=== PATIENT | male | born 1960 | race Caucasian/White ===

== ENCOUNTER 2020-03-28 08:16 | Outpatient (REF) | payer OTHER, SELFPAY ==
--- NOTE | 2020-03-28 08:27 | MR_ITS ---
EXAMINATION: MR SHOULDER WITHOUT CONTRAST, RIGHT CLINICAL INFORMATION: 60-year-old male with right shoulder pain. Evaluate for internal derangement. COMPARISON: Radiographs of shoulder from 02/22/2020. TECHNIQUE: MRI of the shoulder without contrast was performed on a high-field 1.5 Giovanna scanner. FINDINGS: ROTATOR CUFF: Mild thickening and mild signal heterogeneity of tendinosis involving the supraspinatus and infraspinatus. A small intrasubstance tear at the greater tuberosity insertion of the supraspinatus tendon approaches but does not overtly disrupt the bursal surface fibers. This tear measures 0.5 cm AP, 0.2 cm in length and affects approximately one-third of the tendon thickness. No full-thickness tears in the rotator cuff. The subscapularis and teres minor tendons are intact. Muscles of the rotator cuff are normal. BICEPS: The long head of the biceps tendon is normal. It is appropriately positioned within the intertubercular sulcus of the humerus. The intra-articular segment of the tendon, and biceps-labral junction, are intact. CORACOACROMIAL ARCH: At the moderately degenerated acromioclavicular joint, there is osseous hypertrophy, subarticular cystic change and subarticular marrow edema. The undersurface of the acromion is slightly curved, laterally, and without os acromiale or anterior acromial enthesophyte. No evidence of subacromial bursitis. LABRUM/CAPSULE: Intact. No evidence of labral tear or pathologic labral detachment. The glenohumeral ligament complex is unremarkable. No evidence of capsular thickening or pericapsular edema. The spinoglenoid notch is normal. GLENOHUMERAL JOINT/MARROW: The humeral head is well positioned over the intact glenoid. Articular cartilage of the glenohumeral joint is preserved. No glenohumeral joint effusion. No humeral bone bruise, fracture or avascular necrosis. IMPRESSION: * Moderate osteoarthritis of the acromioclavicular joint. * A small, partial-thickness tear of the insertion of the supraspinatus tendon approaches but does not overtly disrupt the bursal surface fibers. * There are no full-thickness tears in the rotator cuff.
== END 2020-03-28 08:17 | disposition home or self-care (01) ==
LOC: HO.MRI 08:16
PROVIDERS: Visit Provider Orthopaedic Surgery
DX: M24.811 Other specific joint derangements of right shoulder, not elsewhere classified (principal)
CPT/HCPCS: 73221

== ENCOUNTER 2020-04-02 08:21 | Outpatient (REF) | payer OTHER, SELFPAY | END 2020-04-02 08:22 | disposition home or self-care (01) | LOC: HO.LAB 08:21 | PROVIDERS: Visit Provider Internal Medicine | DX: Z20.828 Contact with and (suspected) exposure to other viral communicable diseases (principal) | CPT/HCPCS: 87635 ==

== ENCOUNTER → 2020-04-12 08:52 | Outpatient (BNVA) | payer OTHER, SELFPAY | PROVIDERS: Visit Provider Orthopaedic Surgery | DX: Z76.89 Persons encountering health services in other specified circumstances (principal) ==

== ENCOUNTER 2020-12-26 15:14 | Outpatient (REF) | payer OTHER, SELFPAY ==
--- NOTE | ~2020-12-26 | XR_ITS ---
EXAMINATION: XR KNEE, LEFT CLINICAL INFORMATION: Left knee pain. COMPARISON: Left knee radiograph dated 07/11/2015 TECHNIQUE: Four views of the left knee. FINDINGS: Bones and soft tissues are normal. No fracture or joint effusion. Alignment is anatomic. Joint spaces are well maintained. No abnormal soft tissue calcification. XR/XR knee LT 2V IMPRESSION: Unremarkable examination.
== END 2020-12-26 15:15 | disposition home or self-care (01) ==
LOC: HO.XRAY 15:14
PROVIDERS: PCP Internal Medicine; Visit Provider Internal Medicine
DX: M25.562 Pain in left knee (principal)
CPT/HCPCS: 73560

== ENCOUNTER 2020-12-28 09:05 | Outpatient (REF) | payer OTHER, SELFPAY ==
[2020-12-28 09:49] LABS: MANUAL DIFF FLAG NO
[2020-12-28 09:53] LABS: Basophils Percent Auto 0.5 % (0-2); Eosinophils Absolute Auto 0.3 X10*3/uL (0.0-0.4); Eosinophils Percent Auto 3.5 % (0-4); Hematocrit 48.1 % (42-52); Hemoglobin 16.1 g/dl (14.0-18.0); Imm Gran Abs Auto 0.05 X10*3/uL (0.00-0.03); Imm Gran Pct Auto 0.6 % (0.0-0.4); Lymphocytes Absolute Auto 3.2 X10*3/uL (1.2-4.9); Lymphocytes Percent Auto 36.3 % (20-40); Mean Corpuscular HGB Conc 33.5 g/dl (31.0-36.0); Mean Corpuscular Hemoglobin 30.4 pg (27.0-33.0); Mean Corpuscular Volume 90.8 fL (80-98); Monocytes Absolute Auto 1.1 X10*3/uL (0.1-1.2); Monocytes Percent Auto 12.9 % (2-11); Neutrophils Absolute Auto 4.1 X10*3/uL (2.0-8.3); Neutrophils Percent Auto 46.2 % (45-73); Platelet Count 248 X10*3/uL (160-400); Red Cell Distribution Width 12.9 % (11.0-16.0); White Blood Count 8.8 X10*3/uL (4.8-10.8)
[2020-12-28 10:40] LABS: Alanine Aminotransferase 85 U/L (0-40); Albumin Level 4.7 g/dL (3.5-5.0); Alkaline Phosphatase 67 U/L (39-117); Anion Gap 12 (12-20); Aspartate Amino Transferase 71 U/L (5-37); Bilirubin Total 1.1 mg/dL (0.0-1.0); Blood Urea Nitrogen 15 mg/dL (9-16); Calcium 10.2 mg/dL (8.4-10.2); Carbon Dioxide 29 mmol/L (22-29); Chloride 100 mmol/L (96-108); Cholesterol 279 mg/dL; Estimated Glomerular Filt Rate > 60; Glucose Random 104 mg/dL (60-115); HDL Cholesterol 132 mg/dL; LDL Cholesterol Calculated 137 mg/dl; Potassium 5.3 mmol/L (3.3-5.1); Sodium 136 mmol/L (135-145); Total Protein 7.4 g/dL (6.5-8.0); Triglycerides 53 mg/dL
[2020-12-28 10:52] LABS: Free T4 (Free Thyroxine) 0.79 ng/dL (0.71-1.85); Prostate Specific Antigen Scr 0.94 ng/mL (<0.05-4.0)
[2020-12-28 11:11] LABS: Folate 15.7 ng/mL (> or = 4.0); Vitamin B12 487 pg/mL (200-900)
== END 2020-12-28 09:06 | disposition home or self-care (01) ==
LOC: HO.LAB 09:05
PROVIDERS: PCP Internal Medicine; Visit Provider Internal Medicine
DX: Z12.5 Encounter for screening for malignant neoplasm of prostate (principal); E78.00 Pure hypercholesterolemia, unspecified; M25.562 Pain in left knee
CPT/HCPCS: 36415; 80053; 80061; 82607; 82746; 84153; 84439; 84443; 85025

== ENCOUNTER 2021-09-07 14:24 | Outpatient (REF) | payer OTHER, SELFPAY ==
[2021-09-07 14:38] LABS: Binax Internal Control QC Valid; Binax Now Covid-19 Ag Positive (Negative); Binax Performed by: HO.BONILM
== END 2021-09-07 14:25 | disposition home or self-care (01) ==
LOC: HO.HMGCLDS 14:24
PROVIDERS: PCP Internal Medicine; Visit Provider Physician Assistant Medical
DX: Z13.89 Encounter for screening for other disorder (principal)

== ENCOUNTER 2021-09-18 09:30 | Outpatient (REF) | payer OTHER, SELFPAY ==
--- NOTE | ~2021-09-18 | XR_ITS ---
EXAMINATION: XR CHEST CLINICAL INFORMATION: Covid 19 COMPARISON: None TECHNIQUE: 2 views of the chest were obtained. FINDINGS: No significant abnormality is noted involving the heart, lungs, mediastinum, bony thorax or soft tissues. XR/XR chest 2V IMPRESSION: Unremarkable chest exam.
== END 2021-09-18 09:31 | disposition home or self-care (01) ==
LOC: HO.XRAY 09:30
PROVIDERS: PCP Internal Medicine; Visit Provider Internal Medicine
DX: U07.1 COVID-19 (principal)
CPT/HCPCS: 71046

== ENCOUNTER → 2021-10-23 12:01 | Outpatient (RCR) | payer OTHER, SELFPAY ==
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
== END | disposition home or self-care (01) ==
LOC: HO.PTCHIC 03-29 09:49
PROVIDERS: PCP Internal Medicine; Visit Provider Internal Medicine
DX: M79.603 Pain in arm, unspecified (principal); M25.561 Pain in right knee; M79.604 Pain in right leg; M25.551 Pain in right hip; V89.2XXD Person injured in unspecified motor-vehicle accident, traffic, subsequent encounter
CPT/HCPCS: 97110; 97161; 97530

== ENCOUNTER 2022-03-15 08:32 | Emergency (ER) | payer OTHER, SELFPAY ==
[2022-03-15 08:45] VITALS: BP 148/93; PULSE 61; RESP 18; TEMP 36.9; O2SAT 100; BMI 30.9
--- NOTE | 2022-03-15 09:26 | ED_ITS ---
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 [employer] No numbness no weakness no tingling, he did not fall, he felt the pain immediately after lifting There is no changes to bowel or bladder no radiation of pain Related Data Previous Rx's Medication Instructions Recorded lisinopril 10 mg tablet 10 mg PO DAILY #90 caps 06/19/21 azithromycin 250 mg tablet See Rx Instructions PO .COMPLEX #6 09/18/21 (Zithromax) tabs fluticasone propionate 50 1 spray intranasal DAILY #16 grams 09/25/21 mcg/actuation nasal spray,suspension (Flonase Allergy Relief) acetaminophen 500 mg tablet 1,000 mg PO QID PRN pain #30 tabs 03/15/22 cyclobenzaprine 5 mg tablet 5 mg PO TID PRN muscle spasm #14 03/15/22 tabs ibuprofen 600 mg tablet 600 mg PO Q6H PRN pain #20 tabs 03/15/22 Allergies Allergy/AdvReac Type Severity Reaction Status Date / Time hair dye Allergy Intermediate facial Uncoded 09/18/21 08:40 swelling Review of Systems Review of Systems: Positive for low back pain Negatives are no fever no chills no dizziness or weakness no fainting no feeling faint no fall no headache no neck pain no chest pain no abdominal pain no radiation of the pain no numbness no weakness no tingling no changes to bowel or bladder no incontinence no dysuria no skin rash Yes all other systems are reviewed and are negative PMFSH Past Medical History Source: nursing notes reviewed Medical History Arthritis of right acromioclavicular joint Cholelithiasis Fatty liver Hypercholesterolemia Hypertension Internal derangement of right shoulder Obesity (BMI 30-39.9) Surgical History History of appendectomy History of arthroscopy of right knee History of excision of mass History of surgery Family History Family History Mother Asthma Chronic mental illness Alzheimers disease Father No problems noted. Sister Stomach cancer Social History Social History Housing: Apartment Patient Tobacco Use Status: Never used Tobacco e-Cigarette/Vaping Use: Never Used Second Hand Smoke Exposure: No Advance Directives: No Advance Directives Information Provided: No Current occupational status: employed Current occupation: [employer], right handed Cognitive needs: No Hearing needs: No Vision needs: Yes Physical Exam Vital Signs: Vital Signs: Last Vital Signs Temp 98.4 F 03/15/22 08:45 Pulse 61 03/15/22 08:45 Resp 18 03/15/22 08:45 BP 148/93 H 03/15/22 08:45 Pulse Ox 100 03/15/22 08:45 O2 Del Method 03/15/22 08:45 BMI result Body Mass Index 30.9 General appearance no acute distress Head is normocephalic atraumatic Neck is supple Chest wall nontender, respiratory no distress The abdomen is soft nontender The back had left side lower lumbar tenderness, no focal bony tenderness, skin was normal no CVA tenderness, pain easily reproduced with movement Extremities full range of motion x4 Skin no rash Neuro no focal motor sensory deficits, gait and balance are normal, motor is 5/5 x4 and sensation is intact and symmetrical Course Course Course Narrative: Patient with likely strained muscles in his back from lifting at work, no neur ologic deficit no radiation of pain is discharged to follow with work connection Discharge Plan Discharge Clinical Impression: Back strain Patient Disposition: Home, Self-Care Additional Instructions: Exam shows you likely strained muscles in her back, this usually gets better on its own but it is unclear when Follow with work connection next week for clearance to return to work Return to the ER any time any worse condition or any concerns Prescriptions: New acetaminophen 500 mg tablet 1,000 mg PO QID PRN (Reason: pain) Qty: 30 0RF cyclobenzaprine 5 mg tablet 5 mg PO TID PRN (Reason: muscle spasm) Qty: 14 0RF Rx Instructions: This medication may cause drowsiness so no driving for 6 hours after taking ibuprofen 600 mg tablet 600 mg PO Q6H PRN (Reason: pain) Qty: 20 0RF No Action lisinopril 10 mg tablet 10 mg PO DAILY Qty: 90 2RF fluticasone propionate [Flonase Allergy Relief] 50 mcg/actuation spray,suspension 1 spray intranasal DAILY Qty: 16 12RF Rx Instructions: administer into each nostril azithromycin [Zithromax] 250 mg tablet See Rx Instructions PO .COMPLEX Qty: 6 0RF Rx Instructions: For 250 mg dose pack: take 500 mg today (day 1), then 250 mg for 4 days (days 2-5) PO Referrals: [facility] [Provider Group] (Work-related back injury) Stand Alone Forms: Work/School Release
--- OUTSIDE RECORDS SUMMARY | 2022-03-15 09:31 | XMS_ITS | Continuity of Care Document ---
:1960 Author Organization [facility] Address [address] [place], [place] [id number]- Care Team Providers Name Role Phone Lawrence SMITH, Tyson Blanco Primary Care Physician [place] [facility] [place]/20 [place] [id number]- [facility] Discharge Disposition: A-D/C Home Attending Physician: Eduardo Bravo III, MD Admitting Physician: Eduardo Bravo III, MD Referring Physician: Eduardo Braov III, MD
--- OUTSIDE RECORDS SUMMARY | 2022-03-15 09:31 | XMS_ITS | Continuity of Care Document ---
:1960 Author Organization [facility] Address [address] [place] [address]- Care Team Providers Name Role Phone Lawrence Tyson SMITH Primary Care Physician [place] [facility] [place](s): 03/21/20 - 04/20/[address] [address] Attending Physician: Jose Horner Admitting Physician: Jose Horner Referring Physician: Jose Horner
--- OUTSIDE RECORDS SUMMARY | 2022-03-15 09:31 | XMS_ITS | Continuity of Care Document ---
:1960 Author Organization [facility] Address [address] [place] [address]- Care Team Providers Name Role Phone Tyson Bravo MD Primary Care Physician Encounter [facility] [place] Date(s): 01/31/20 - 05/21/[address] [id number]- Discharge Disposition: A-D/C Home Attending Physician: Tyson Bravo MD Admitting Physician: Tyson Bravo MD Referring Physician: Padmini Jimenez MD
== END 2022-03-15 09:48 | disposition home or self-care (01) ==
PROVIDERS: Emergency Provider Emergency Medicine; PCP Internal Medicine
DX: S39.012A Strain of muscle, fascia and tendon of lower back, initial encounter (principal); X50.0XXA Overexertion from strenuous movement or load, initial encounter; Y93.89 Activity, other specified; Y92.410 Unspecified street and highway as the place of occurrence of the external cause; Y99.0 Civilian activity done for income or pay
CPT/HCPCS: 99282; 99283

== ENCOUNTER → 2022-03-17 10:20 | Outpatient (BNVA) | payer OTHER, SELFPAY | PROVIDERS: PCP Internal Medicine; Visit Provider Internal Medicine | DX: S39.012A Strain of muscle, fascia and tendon of lower back, initial encounter (principal); X50.0XXA Overexertion from strenuous movement or load, initial encounter | CPT/HCPCS: 99202 ==

== ENCOUNTER → 2022-03-20 09:44 | Outpatient (BNVA) | payer OTHER, SELFPAY | PROVIDERS: PCP Internal Medicine; Visit Provider Internal Medicine | DX: S39.012A Strain of muscle, fascia and tendon of lower back, initial encounter (principal); X50.0XXA Overexertion from strenuous movement or load, initial encounter | CPT/HCPCS: 99213 ==

== ENCOUNTER 2022-03-27 09:19 | Outpatient (REF) | payer OTHER, SELFPAY ==
[2022-03-27 09:38] LABS: MANUAL DIFF FLAG NO
[2022-03-27 10:35] LABS: Basophils Absolute Auto 0.1 X10*3/uL (0.0-0.2); Basophils Percent Auto 0.6 % (0-2); Eosinophils Absolute Auto 0.3 X10*3/uL (0.0-0.4); Eosinophils Percent Auto 3.6 % (0-4); Hematocrit 48.7 % (42.0-52.0); Hemoglobin 16.3 g/dl (14.0-18.0); Imm Gran Abs Auto 0.06 X10*3/uL (0.00-0.03); Imm Gran Pct Auto 0.8 % (0.0-0.4); Lymphocytes Percent Auto 37.6 % (20-40); Mean Corpuscular HGB Conc 33.5 g/dl (31.0-36.0); Mean Corpuscular Hemoglobin 30.3 pg (27.0-33.0); Mean Corpuscular Volume 90.5 fL (80.0-98.0); Mean Platelet Volume 9.8 fL (9.4-12.4); Monocytes Absolute Auto 1.1 X10*3/uL (0.1-1.2); Monocytes Percent Auto 13.9 % (2-11); Neutrophils Absolute Auto 3.5 x10*3/uL (2.0-8.3); Neutrophils Percent Auto 43.5 % (45-73); Platelet Count 237 X10*3/uL (160-400); Red Blood Count 5.38 X10*6/uL (4.60-5.80); Red Cell Distribution Width 12.8 % (11.0-16.0)
[2022-03-27 11:25] LABS: Alanine Aminotransferase 70 U/L (0-40); Albumin Level 4.4 g/dL (3.5-5.0); Alkaline Phosphatase 86 U/L (39-117); Anion Gap 17 (12-20); Aspartate Amino Transferase 63 U/L (5-37); Bilirubin Total 0.2 mg/dL (0.0-1.0); Blood Urea Nitrogen 11 mg/dL (9-16); Calcium 9.2 mg/dL (8.4-10.2); Carbon Dioxide 25 mmol/L (22-29); Chloride 104 mmol/L (96-108); Cholesterol 277 mg/dL; Estimated Glomerular Filt Rate > 60; Glucose Random 106 mg/dL (60-115); HDL Cholesterol 128 mg/dL; LDL Cholesterol Calculated 135 mg/dl; Potassium 4.8 mmol/L (3.3-5.1); Sodium 141 mmol/L (135-145); Total Protein 7.1 g/dL (6.5-8.0); Triglycerides 74 mg/dL
[2022-03-27 11:50] LABS: Free T4 (Free Thyroxine) 0.81 ng/dL (0.71-1.85); Prostate Specific Antigen Scr 0.82 ng/mL (<0.05-4.0); Thyroid Stimulating Hormone 1.11 uIU/mL (0.32-4.0)
[2022-03-27 12:06] LABS: Folate 13.2 ng/mL (> or = 4.0); Vitamin B12 346 pg/mL (200-900)
== END 2022-03-27 09:20 | disposition home or self-care (01) ==
LOC: HO.LAB 09:19
PROVIDERS: PCP Internal Medicine; Visit Provider Internal Medicine
DX: E78.00 Pure hypercholesterolemia, unspecified (principal); Z12.5 Encounter for screening for malignant neoplasm of prostate
CPT/HCPCS: 36415; 80053; 80061; 82607; 82746; 84153; 84439; 84443; 85025

== ENCOUNTER → 2022-03-31 08:06 | Outpatient (BNVA) | payer OTHER, SELFPAY | PROVIDERS: PCP Internal Medicine; Visit Provider Internal Medicine | DX: S39.012D Strain of muscle, fascia and tendon of lower back, subsequent encounter (principal); X50.0XXD Overexertion from strenuous movement or load, subsequent encounter | CPT/HCPCS: 72100; 99214 ==

== ENCOUNTER → 2022-04-08 09:10 | Outpatient (BNVA) | payer OTHER, SELFPAY | PROVIDERS: PCP Internal Medicine; Visit Provider Internal Medicine | DX: S39.012A Strain of muscle, fascia and tendon of lower back, initial encounter (principal); X50.0XXA Overexertion from strenuous movement or load, initial encounter | CPT/HCPCS: 99213 ==

== ENCOUNTER → 2022-04-18 08:33 | Outpatient (BNVA) | payer OTHER, SELFPAY | PROVIDERS: PCP Internal Medicine; Visit Provider Internal Medicine | DX: S39.012D Strain of muscle, fascia and tendon of lower back, subsequent encounter (principal); X50.0XXD Overexertion from strenuous movement or load, subsequent encounter | CPT/HCPCS: 99213 ==

== ENCOUNTER 2022-05-23 11:00 | Outpatient (RCR) | payer OTHER, SELFPAY ==
--- NOTE | 2022-04-03 15:21 | MHC.PT.EP ---
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 MD sends him to PT with Dx of lumbar sprain/strain. PT Dx is consistent with this injury, does not present as disc involvement, only L sided lumbar sprain. He presents with decreased lumbar and hip AROM, weakness in hip and back musculature, antalgic gait/stiffness and difficulty with functional activities that are required for work tasks (climbing stairs, squatting and lifting, prolonged standing and walking.) He requires skilled PT to be able to return to PLOF activities and RTW. Frequency and Duration: The patient will be seen 3x/week for 4 weeks Short Term Goals: 2 weeks Patient demonstrates independence with HEP to self mange symptoms. Patient presents with increased lumbar side bending 20 degrees bilaterally to restore normalized gait pattern. 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 Patient presents with increased lumbar flexion AROM 90 degrees to bend without difficulty. Treatment Plan: Modalities to reduce pain, spasms and effusion. Manual therapy to restore motion and function. Therapeutic exercise to improve strength and flexibility. Neuromuscular re-education for posture and balance. Therapeutic activities to return to functional activities of daily living. Electronically signed by: Monica Garcia, PT, DPT Please sign and return to therapist. Thank you for your referral.
--- NOTE | 2022-05-02 15:04 | MHC.PT.EP ---
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 MD sends him to PT with Dx of lumbar sprain/strain. PT Dx is consistent with this injury, does not present as disc involvement, only L sided lumbar sprain. He presents with decreased lumbar and hip AROM, weakness in hip and back musculature, antalgic gait/stiffness and difficulty with functional activities that are required for work tasks (climbing stairs, squatting and lifting, prolonged standing and walking.) He requires skilled PT to be able to return to PLOF activities and RTW. Frequency and Duration: The patient will be seen 2x/week for 4 weeks Short Term Goals: 2 weeks Patient demonstrates independence with HEP to self mange symptoms. MET Patient presents with increased lumbar side bending 20 degrees bilaterally to restore normalized gait pattern. 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 MET objective portion. Patient presents with increased lumbar flexion AROM 90 degrees to bend without difficulty. NOT MET, painful Treatment Plan: Modalities to reduce pain, spasms and effusion. Manual therapy to restore motion and function. Therapeutic exercise to improve strength and flexibility. Neuromuscular re-education for posture and balance. Therapeutic activities to return to functional activities of daily living. Electronically signed by: Monica Garcia, PT, DPT Please sign and return to therapist. Thank you for your referral.
--- NOTE | 2022-06-02 14:27 | MHC.PT.DC ---
[facility] [place] Office [place] Office [place] Office [address] Kavon Ragland [address] [phone] F: [phone] F: [phone] F: [phone] F: [phone] Physical Therapy Discharge Report Diagnosis: Lumbar strain Date of Surgery: Date of Evaluation: 04/03/22 Date of Discharge: 06/02/22 Treatments to Date: 15 Cancellations to Date: 3 No Shows to Date: 2 Discharge Status: Improved Function Independent with HEP Visit Non-compliance Discharge Summary: Patient was treated in PT for 15 visits for worker's compensation for how LBP. He did not show at his last two scheduled PT appointments and is therefore discharged from PT at this time for non-compliance. Please see last re-evaluation performed on 05/02/22 for objective measurements taken. Electronically signed by: Monica Garcia, PT, DPT Please sign and return to therapist. Thank you for your referral.
== END 2022-06-02 14:27 | disposition home or self-care (01) ==
LOC: HO.PTCHIC 11:00
PROVIDERS: PCP Internal Medicine; Visit Provider Internal Medicine
DX: S39.012D Strain of muscle, fascia and tendon of lower back, subsequent encounter (principal)
CPT/HCPCS: 97012; 97014; 97110; 97112; 97140; 97161; 97530

== ENCOUNTER 2022-07-24 07:33 | Outpatient (REF) | payer OTHER, SELFPAY ==
[2022-07-25 07:32] LABS: HBc Num1 0.07 S/CO (0.00-0.79); Hepatitis A Antibody IgM 0.15 Index (0-0.79); Hepatitis B Core Antibody Nonreactive (Nonreactive); Hepatitis B Surface Antigen Negative (Negative); ~HepC Num1 0.11 S/CO (0.00-0.79); ~Hepatitis A Antibody IgM Nonreactive (Nonreactive); ~Hepatitis B Surface Antibody REACTIVE (Nonreactive); ~Hepatitis C Antibody Nonreactive (Nonreactive)
[2022-07-27 04:03] LABS: Alpha 1 Anti-trypsin 174 mg/dL (83-199); Ceruloplasmin 22 mg/dL (18-36)
[2022-07-29 07:44] LABS: Mitochondrial Antibodies NEGATIVE (NEGATIVE)
[2022-07-29 12:13] LABS: Anti Nuclear Antibody Screen NEGATIVE (NEGATIVE)
[2022-07-31 00:24] LABS: Smooth Muscle Antibody <20 U (<20)
== END 2022-07-24 07:34 | disposition home or self-care (01) ==
LOC: HO.LAB 07:33
PROVIDERS: PCP Internal Medicine; Referring Provider Internal Medicine; Visit Provider Physician Assistant
DX: Z01.818 Encounter for other preprocedural examination (principal); K76.0 Fatty (change of) liver, not elsewhere classified; R74.8 Abnormal levels of other serum enzymes; R79.89 Other specified abnormal findings of blood chemistry; R74.01 Elevation of levels of liver transaminase levels
CPT/HCPCS: 36415; 82103; 82390; 86015; 86038; 86039; 86255; 86256; 86704; 86706; 86709; 86803; 87340

== ENCOUNTER 2022-11-14 20:22 | Emergency (ER) | payer OTHER, SELFPAY ==
--- NOTE | ~2022-11-14 | XR_ITS ---
EXAMINATION: CHEST 2 VIEWS CLINICAL INFORMATION: fall rib pain. COMPARISON: . TECHNIQUE: PA and lateral views of the chest obtained. FINDINGS: The lungs are mildly hypoexpanded. No focal infiltrate, effusion, edema, or pneumothorax. Cardiac and mediastinal silhouettes are within normal limits for technique. No acute bony abnormality seen XR/XR chest 2V IMPRESSION: No evidence of acute disease
[2022-11-14 20:56] VITALS: BP 143/82; PULSE 79; RESP 16; TEMP 36.7; O2SAT 98; BMI 30.7
--- OUTSIDE RECORDS SUMMARY | 2022-11-15 00:16 | XMS_ITS | Continuity of Care Document ---
Author Name Unknown Organization [facility] Address [address] [place] [address]- Care Team Providers Care Room Attendant Name Role Phone Padmini Jimenez MD Primary Care Physician [phone] [facility] [place] Date(s): 07/17/22 - 08/16/22 [facility] [address] [place] [address]- Attending Physician: Jose Horner Admitting Physician: Jose Horner Referring Physician: Jose Horner Allergies, Adverse Reactions, Alerts No Known Allergies Medications aspirin 325 mg oral tablet 325 mg, 1, tablet, By Mouth, Daily, Refills 0, Maintenance, 02/19/21 13:11:00 EDT, Partial fill upon patient request if the prescription is for a schedule II opioid drug. Start Date: 02/19/21 Stop Date: 03/05/21 Status: Ordered lisinopril 10 mg oral tablet TAKE ONE TABLET BY MOUTH EVERY DAY Start Date: 04/24/22 Status: Ordered meloxicam 15 mg oral tablet 1 tablet = 15 mg, By Mouth, Daily, # 30 tablet, 0 Refills, Maintenance, 05/22/22 13:48:00 EST, Tablet, [facility], Partial fill upon patient request if the prescription is for a schedule II opioid drug., 180, cm, 05/22/22 13:32:00 EST, H... Start Date: 05/22/22 Status: Ordered Patient Care team information Care Team Personnel Name: Padmini Jimenez MD Position: Reference Physician Member Role: PCP Address: Address: [address] [place] [address]- Care Team Related Persons Name: SORAIDA CORNEJO Address: home [address] [place] [address]
--- OUTSIDE RECORDS SUMMARY | 2022-11-15 00:16 | XMS_ITS | Continuity of Care Document ---
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
[2022-11-15 00:18] VITALS: BP 139/87; PULSE 67; RESP 18; TEMP 36.4; O2SAT 96
--- NOTE | 2022-11-15 00:41 | ED.FALL ---
HPI - Fall General Chief Complaint: Fall Stated Complaint: fell 2 days ago, rib cage injury, sob Time Seen by Provider: 11/15/22 00:07 Source: patient Mode of arrival: ambulatory Limitations: no limitations History of Present Illness HPI Narrative: 62-year-old male presents with left-sided chest pain. Chest pain occurred after a fall in the bathtub. He did not hit his head or lose consciousness. Is a mechanical fall. Pain in his left chest is lateral nature. It is achy. Does not radiate. Pain is severe. 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 Prior treatment includes 1 cyclobenzaprine and topical heating medications. Related Data Previous Rx's Medication Instructions Recorded bisacodyl 5 mg tablet,delayed 10 mg PO ONCE colonoscopy prep 1 07/24/22 release (Dulcolax (bisacodyl)) day #2 tabs polyethylene glycol 3350 17 238 g PO ONCE 1 day #238 grams 07/24/22 gram/dose oral powder (Miralax) lisinopril 10 mg tablet 10 mg PO DAILY #90 caps 09/30/22 lidocaine 5 % topical patch 1 patch topical DAILY #30 ea 11/15/22 oxycodone 5 mg tablet 5 mg PO Q8H PRN pain #7 tabs 11/15/22 Allergies Allergy/AdvReac Type Severity Reaction Status Date / Time hair dye Allergy Intermediate facial Uncoded 03/31/22 10:08 swelling Review of Systems Review of Systems: CONSTITUTIONAL: Denies weight loss, fever and chills. HEENT: Denies changes in vision and hearing. RESPIRATORY: Denies SOB and cough. CV: Denies palpitations positive CP. GI: Denies abdominal pain, nausea, vomiting and diarrhea. : Denies dysuria and urinary frequency. MSK: Denies myalgia and joint pain. SKIN: Denies rash and pruritus. NEUROLOGICAL: Denies headache and syncope. PSYCHIATRIC: Denies recent changes in mood. Denies anxiety and depression. All other ROS are negative unless in HPI PMFSH Past Medical History Medical History Arthritis of right acromioclavicular joint Cholelithiasis Fatty liver Hypercholesterolemia Hypertension Internal derangement of right shoulder Obesity (BMI 30-39.9) Surgical History History of appendectomy History of arthroscopy of right knee History of excision of mass History of surgery Family History Family History Mother Asthma Chronic mental illness Alzheimers disease Father No problems noted. Sister Stomach cancer Other Mental health disorder Social History Social History Housing: Apartment Alcohol intake: current Alcohol intake frequency: 0-2 drinks per day Alcohol type: beer Patient Tobacco Use Status: Never used Tobacco e-Cigarette/Vaping Use: Never Used Second Hand Smoke Exposure: No Advance Directives: No Advance Directives Information Provided: Yes service: No Current occupational status: employed Current occupation: [employer], right handed Cognitive needs: No Hearing needs: No Vision needs: Yes (glasses) Physical Exam Vital Signs: Vital Signs: Last Vital Signs Temp 97.5 F 11/15/22 00:18 Pulse 67 11/15/22 00:18 Resp 18 11/15/22 00:18 BP 139/87 11/15/22 00:18 Pulse Ox 96 11/15/22 00:18 O2 Del Method Room Air 11/15/22 00:18 BMI result Body Mass Index 30.7 GEN: Well developed, no acute distress, alert, oriented HEENT: Normocephalic, atraumatic, normal external ears, nose appears normal, no oropharyngeal edema or exudates Eyes: Normal to appearance Neck: Supple, no lymphadenopathy Respiratory: Talks in complete sentences, no respiratory distress, clear to auscultation bilaterally Cardiovascular: Regular rate and rhythm, no murmurs rubs or gallops Abdomen: Soft, nontender, nondistended, no guarding, no rebound Back: No CVA tenderness Extremities: No clubbing cyanosis or edema Neurologic: No focal neurologic deficits, cranial nerves 2-12 intact, strength is 5/5 bilaterally Skin: No rash Chest: Reproducible tenderness left side of the chest wall to palpation. No ecchymoses Course Course Course Narrative: Patient presents with chest wall pain. X-ray reveals no acute cardiopulmonary disease and no definite rib fracture. Patient can take analgesic pain medications as needed. Can follow up with his primary care provider. Medical Decision Making Medical Decision Making MDM Narrative: Patient presents with 2-3 days of left-sided chest pain secondary to trauma. Examination is unremarkable with exception of reproducible tenderness. Will obtain an x-ray to rule out acute cardiopulmonary disease and possible rib fracture patient can take [id number] pain med remedies. We can also discuss prescription pain medications as well. Differential Diagnosis Differential Diagnoses: The differential diagnosis associated with the presentation includes (Contusion, fracture, sprain, strain, spasm) Independent Interpretation I performed an independent interpretation of an: Plain X-Ray (Chest: No acute cardiopulmonary disease no definitive rib fracture) Tests considered The following testing was considered but not selected: CT of the chest Prescription Management I considered prescription management with: Pain Medication Discharge Plan Discharge Clinical Impression: Chest wall contusion Patient Disposition: Home, Self-Care Instructions: Rib Contusion (ED) Prescriptions: New oxycodone 5 mg tablet 5 mg PO Q8H PRN (Reason: pain) Qty: 7 0RF Rx Instructions: Partial Fill upon patient request. lidocaine 5 % adhesive patch,medicated 1 patch topical DAILY Qty: 30 0RF Rx Instructions: leave on most painful area for up to 12 hrs No Action lisinopril 10 mg tablet 10 mg PO DAILY Qty: 90 0RF bisacodyl [Dulcolax (bisacodyl)] 5 mg tablet,delayed release (DR/EC) 10 mg PO ONCE 1 Days Qty: 2 0RF Rx Instructions: Take 2 tablets by mouth at 12:00pm the day before your procedure. polyethylene glycol 3350 [Miralax] 17 gram/dose powder 238 g PO ONCE 1 Days Qty: 238 0RF Rx Instructions: Take as directed by mouth the day before your procedure. Referrals: Po,Padmini Wesley MD [Primary Care Provider] - 1 week Stand Alone Forms: Work/School Release
== END 2022-11-15 00:48 | disposition home or self-care (01) ==
PROVIDERS: Emergency Provider Emergency Medicine; PCP Internal Medicine
DX: S20.213A Contusion of bilateral front wall of thorax, initial encounter (principal); W18.2XXA Fall in (into) shower or empty bathtub, initial encounter; Y93.9 Activity, unspecified; Y92.002 Bathroom of unspecified non-institutional (private) residence as the place of occurrence of the external cause; Y99.9 Unspecified external cause status; Z79.899 Other long term (current) drug therapy
CPT/HCPCS: 71046; 99283; 99284

== ENCOUNTER 2023-03-18 10:38 | Outpatient (AMB) | payer OTHER, SELFPAY ==
--- NOTE | 2023-03-18 10:36 | A.OFFPC_ITS ---
Vital Signs 03/18/23 10:39 Height 5 ft 11 in Weight 220 lb BMI 30.7 BP 120/70 Blood Pressure Location Lt brachial Position Sitting Pulse 80 Pulse Source Pulse Oximeter Pulse Oximetry (%) 98 Oxygen Delivery Method Room Air Intake Visit Reasons: annual physical Intake Note: Patient is here to follow up on HTN, Hypercholesterolemia. Svp Digital [employer] Required: No Maid Supervisor: Not Required per policy Accompanied by: Self / Same As Patient Allergies hair dye Allergy (Intermediate, Uncoded 03/18/23 10:38) facial swelling Medication List - Last Reconciled 03/18/23 by Padmini Jimenez MD bisacodyl (Dulcolax (bisacodyl)) 10 mg (2 x 5 mg) PO ONCE 1 day lidocaine 5% 1 patch topical DAILY lisinopril 10 mg PO DAILY polyethylene glycol 3350 (Miralax) 238 grams PO ONCE 1 day Tobacco use date assessed: 03/18/23 Dental Screening Dental Screen Date: 03/18/23 Did you have a dental visit in the last 12 months?: No Did you have a dental problem in the last 6 months where you did not have access to dental care?: No Was dental information given to patient?: Patient has dentist HPI annual physical HPI Details 62-year-old obese male with hypercholest erolemia fatty liver hypertension coming in for follow-up. Last seen in September 2021 having COVID-19 infection. Patient is here for physical exam colonoscopy is due. Review of the notes in November patient had a fall in the bathtub diagnosis chest wall contusion. Patient is scheduled to get colonoscopy in May. no PE as he is scheduled next week. patient also has rashes on face and wants referral to dermatology [facility] Medical History Arthritis of right acromioclavicular joint Cholelithiasis Fatty liver Hypercholesterolemia Hypertension Internal derangement of right shoulder Obesity (BMI 30-39.9) Surgical History History of surgery History of excision of mass History of arthroscopy of right knee History of appendectomy Family History Mother Asthma Chronic mental illness Alzheimers disease Father No problems noted. Sister Stomach cancer Other Mental health disorder Social History (Updated 03/18/23 @ 11:12 by Padmini Jimenez MD) Housing: Apartment Alcohol intake: current Alcohol intake frequency: a few times a week Alcohol type: beer Patient Tobacco Use Status: Never used Tobacco e-Cigarette/Vaping Use: Never Used Second Hand Smoke Exposure: No service: No Current occupational status: employed Current occupation: [employer], right handed Cognitive needs: No Hearing needs: No Vision needs: Yes (glasses) Questionnaire PHQ-9 Over the last 2 weeks, how often have you been bothered by any of the following problems? 1. Little interest or pleasure in doing things: not at all 2. Feeling down, depressed, or hopeless: not at all 3. Trouble falling or staying asleep, or sleeping too much: not at all 4. Feeling tired or having little energy: not at all 5. Poor appetite or overeating: not at all 6. Feeling bad about yourself - or that you are a failure or have let yourself or your family down: not at all 7. Trouble concentrating on things, such as reading the newspaper or watching television: not at all 8. Moving or speaking so slowly that other people could have noticed. Or the opposite - being so fidgety or restless that you have been moving around a lot more than usual: not at all 9. Thoughts that you would be better off or of hurting yourself in some way: not at all Total score: 0 Depression Screening Interpretation: Negative Depression Screening Done: Yes Source: Developed by Drs. Brando Lozoya, Maryjo Cabrera, Noble Powers and colleagues, with an educational maricruz from [employer]. Thrive Questionnaire Date Thrive assessed: 03/18/23 I am a: Patient What is your living situation today?: I have a steady place to live Within the past 12 months, did the food you bought not last and you didn't have the money to get more?: Never true Within the past 12 months, did you worry whether your food would run out before you got money to buy more?: Never true Do you have trouble paying for medicines?: No Do you have trouble getting transportation to medical appointments?: No Do you have trouble paying your heating and electricity bill?: No Do you have trouble taking care of your child, family member or friend?: No Do you have trouble with day-to-day activities such as bathing, preparing meals, shopping, managing finances, etc.?: No Are you currently unemployed and looking for a job?: No Are you interested in more education?: No Currently or been in a relationship where the following occur: no concerns reported AUDIT C Alcohol Use Questionnaire (AUDIT-C) 1. How often do you have a drink containing alcohol?: Monthly or less 2. How many drinks containing alcohol do you have on a typical day when you are drinking?: 1 or 2 Total Score: 1 GAURANG-7 AMB Questionnaire GAURANG-7 Date GAURANG - 7 assessed: 03/18/23 Feeling nervous, anxious, or on edge: 0 = Not at all Not being able to stop or control worryin = Not at all Worrying too much about different things: 0 = Not at all Trouble relaxin = Not at all Being so restless that it is hard to sit still: 0 = Not at all Becoming easily annoyed or irritable: 0 = Not at all Feeling afraid as if something awful might happen: 0 = Not at all Total GAURANG-7 score (0-4 normal; 5-9 mild; 10-14 moderate; 15-21 severe): 0 Source: Developed by Drs. Brando Lozoya, Maryjo Cabrera, Noble Powers and colleagues, with an educational maricruz from [employer]. Review of Systems Const Denies poor appetite and Denies weakness Eyes Denies no additional complaints ENT Reports Normal hearing present, Denies dizziness, Denies nasal congestion, Denies tinnitus and Denies sore throat Card Denies chest pain, Denies syncope, Denies rapid heart rate and Denies dyspnea Resp Denies cough and Denies dyspnea GI Denies change in stool character, Reports constipation, Denies diarrhea, Denies nausea and Denies vomiting Denies dysuria and Denies urinary frequency Neuro Reports Normal hearing present, Denies confusion, Denies dizziness, Denies syncope and Denies weakness Psych Denies confusion Physical exam (Primary Care) Vital Signs: Last Vital Signs Pulse 80 03/18/23 10:39 BP 120/70 03/18/23 10:39 Pulse Ox 98 03/18/23 10:39 Oxygen Delivery Method Room Air 03/18/23 10:39 BMI result Body Mass Index 30.7 Tobacco/Smoking Status: Tobacco use Status Tobacco use date assessed 03/18/23 03/18/23 10:38 Patient Tobacco Use Status Never used Tobacco 03/18/23 10:44 Tobacco use type 03/18/23 10:34 e-Cigarette/Vaping Use Never Used 03/18/23 10:44 PHQ-9: PHQ-9 Score PHQ-9: Total score 0 03/18/23 11:04 Depression Screening Interpretation: Negative Thrive Assessment: Date of Thrive Assessment Date Thrive assessed 03/18/23 03/18/23 10:38 Currently or been in a relationship where the following occur: no concerns reported Const General: alert and awake; No confusion Orientation/consciousness: No confusion HENMT Head: Yes normocephalic Ears: external ears normal and TM's normal bilaterally Face and sinus: Yes normal facial exam Mouth: moist mucous membranes Throat: Yes tonsils normal Eyes Conjunctivae: conjunctivae normal Pupils: Equal, round and reactive pupils present and Pupil accommodation reflex normal Direct Ophthalmoscopy: normal light reflex Neck Neck: No lymphadenopathy Thyroid: Thyroid normal Chest Chest palpation & inspection: normal inspection of the chest Resp Effort & Inspection: normal respiratory effort and no audible wheezes Auscultation: clear to auscultation bilaterally, no crackles, no wheezes and lung sounds not diminished Cardio Rate: regular rate Rhythm: regular rhythm Peripheral pulses: radial pulses present and dorsalis pedis present GI Palpation (GI): no masses Auscultation: normal bowel sounds and normoactive bowel sounds Rectal Exam - Male: Yes deferred Skin General skin exam: no rashes or lesions noted Rashes: no rashes Neuro General: deep tendon reflexes 2+ bilaterally and No confusion Cranial nerves: Yes Equal, round and reactive pupils present, Yes Midline tongue present, Yes Normal hearing present and Yes Ability to bilaterally elevate shoulders present Cognition (Neuro): normal cognition Gait exam (Neuro): Normal gait present Motor exam (neuro): 5/5 motor strength present throughout Deep tendon reflexes (DTR's): Right brachioradialis reflex intensity grade: 2+, Left brachioradialis reflex intensity grade: 2+, Right patellar reflex intensity grade: 2+ and Left patellar reflex intensity grade: 2+ Extrem General: No edema Office Procedures Flu Questionnaire Does the patient have a severe egg allergy?: No Does the patient have severe life threatening allergies?: No Does the patient have a fever or illness today?: No Has the patient ever had Guillain-Fulton Syndrome?: No Has the patient ever had any past reaction to a flu shot?: No Comment: afebrile. patient consented for flu shot today. Immunizations flu vacc [id number] 6mos up(PF) 60 mcg(15 mcgx4)/0.5 mL IM syringe Performing Provider: Padmini Jimenez MD [facility] Administered by: Ghassan Smith RN on 03/18/23 10:55 Dose Route Admin Location Dispensed Lot Number Expiration Date NDC Air Compressor Engineer 0.5 mL IM Right Deltoid 0.5 mL [id number] 12/13/23 52821-685-82 [id number] VIS Given Date VIS Provided VIS Publication Date 03/18/23 Single Vaccine 21 Eligibility Eligibility Date Funding Source Not VFC Eligible 03/18/23 Private Administration Comments: tolerated well Assessment and Plan Assessment & Plan (1) Fatty liver: Comment: Over chart review note elevated liver enzymes Will get abdominal ultrasound to assess for fatty liver Labs to rule out any underlying liver disease Code(s): K76.0 - Fatty (change of) liver, not elsewhere classified Plan: Low-fat diet and exercise (2) Obesity (BMI 30-39.9): Code(s): E66.9 - Obesity, unspecified Plan: Diet and exercise (3) Hypercholesterolemia: Code(s): E78.00 - Pure hypercholesterolemia, unspecified Plan: Avoid fried foods, chicken skin, eggs, butter margarine, pastries and meat. Be it pork or beef they have a lot of cholesterol LDL goal of less than 130 and triglyceride of less than 150 (4) Hypertension: Code(s): I10 - Essential (primary) hypertension Plan: Continue with blood pressure medication. Decrease salt intake and exercise continue with lisinopril 10 mg once a day (5) Frequency of micturition: Code(s): R35.0 - Frequency of micturition (6) Actinic keratosis: Code(s): L57.0 - Actinic keratosis Orders: Orders Influenza [id number] Immunization Today Z23 - Encounter for immunization Complete Blood Count Auto Diff Today E78.00 - Pure hypercholesterolemia, unspec ified Free T4 (Free Thyroxine) Today E78.00 - Pure hypercholesterolemia, unspecified Lipid Panel Today E78.00 - Pure hypercholesterolemia, unspecified Prostate Specific Antigen Scr Today E78.00 - Pure hypercholesterolemia, unspecified US bladder Today R35.0 - Frequency of micturition Comprehensive Met. Panel Today E78.00 - Pure hypercholesterolemia, unspecified Thyroid Stimulating Hormone Today E78.00 - Pure hypercholesterolemia, unsp ecified Vitamin B12 and Folate Today E78.00 - Pure hypercholesterolemia, unspecified Referrals Dermatology Referral L57.0 - Actinic keratosis Medications: New lisinopril 10 mg PO DAILY 90 tabs 1RF I10 - Essential (primary) hypertension Refilled lidocaine 5% leave on most painful area for up to 12 hrs 1 patch topical DAILY 30 ea 0RF E78.00 - Pure hypercholesterolemia, unspecified Coding Level of Care Code Est Pt Level 4 (40695) Est Pt Prev Care 40-64y(09071) Diagnoses Fatty liver K76.0 Obesity (BMI 30-39.9) E66.9 Hypercholesterolemia E78.00 Hypertension I10 Frequency of micturition R35.0 Actinic keratosis L57.0
[2023-03-18 10:39] VITALS: BP 120/70; PULSE 80; O2SAT 98; BMI 30.7
== END 2023-03-18 11:27 | disposition home or self-care (01) ==
PROVIDERS: PCP Internal Medicine; Visit Provider Internal Medicine
DX: Z00.00 Encounter for general adult medical examination without abnormal findings (principal); K76.0 Fatty (change of) liver, not elsewhere classified; Z68.30 Body mass index [BMI] 30.0-30.9, adult; E66.9 Obesity, unspecified; E78.00 Pure hypercholesterolemia, unspecified; Z23 Encounter for immunization; I10 Essential (primary) hypertension; R35.0 Frequency of micturition; L57.0 Actinic keratosis
CPT/HCPCS: 90471; 90686; 99396

== ENCOUNTER 2023-03-18 11:35 | Outpatient (REF) | payer OTHER, SELFPAY ==
[2023-03-18 11:49] LABS: MANUAL DIFF FLAG NO
[2023-03-18 12:58] LABS: Basophils Absolute Auto 0.1 X10*3/uL (0.0-0.2); Basophils Percent Auto 0.6 % (0-2); Eosinophils Absolute Auto 0.2 X10*3/uL (0.0-0.4); Eosinophils Percent Auto 2.5 % (0-4); Hematocrit 46.8 % (42.0-52.0); Hemoglobin 15.8 g/dl (14.0-18.0); Imm Gran Abs Auto 0.05 X10*3/uL (0.00-0.03); Imm Gran Pct Auto 0.6 % (0.0-0.4); Lymphocytes Absolute Auto 3.4 X10*3/uL (1.2-4.9); Mean Corpuscular HGB Conc 33.8 g/dl (31.0-36.0); Mean Corpuscular Hemoglobin 31.2 pg (27.0-33.0); Mean Corpuscular Volume 92.3 fL (80.0-98.0); Mean Platelet Volume 10.6 fL (9.4-12.4); Monocytes Percent Auto 11.7 % (2-11); Neutrophils Absolute Auto 3.8 x10*3/uL (2.0-8.3); Neutrophils Percent Auto 44.6 % (45-73); Platelet Count 213 X10*3/uL (160-400); Red Blood Count 5.07 X10*6/uL (4.60-5.80); Red Cell Distribution Width 12.6 % (11.0-16.0); White Blood Count 8.6 X10*3/uL (4.8-10.8)
[2023-03-18 14:00] LABS: Alanine Aminotransferase 57 U/L (0-40); Albumin Level 4.2 g/dL (3.5-5.0); Alkaline Phosphatase 63 U/L (39-117); Anion Gap 14 (12-20); Aspartate Amino Transferase 55 U/L (5-37); Bilirubin Total 0.9 mg/dL (0.0-1.0); Blood Urea Nitrogen 18 mg/dL (9-16); Calcium 9.4 mg/dL (8.4-10.2); Carbon Dioxide 26 mmol/L (22-29); Chloride 100 mmol/L (96-108); Cholesterol 273 mg/dL (<200); Estimated Glomerular Filt Rate > 60; Glucose Random 97 mg/dL (60-115); HDL Cholesterol 124 mg/dL (>40); LDL Cholesterol Calculated 140 mg/dL (<100); Potassium 4.3 mmol/L (3.3-5.1); Sodium 136 mmol/L (135-145); Total Protein 7.1 g/dL (6.5-8.0); Triglycerides 49 mg/dL (<150)
[2023-03-18 14:21] LABS: Thyroid Stimulating Hormone 1.64 uIU/mL (0.32-4.0)
[2023-03-18 14:31] LABS: Folate 13.6 ng/mL (> or = 4.0); Prostate Specific Antigen Scr 0.54 ng/mL (<0.05-4.0); Vitamin B12 459 pg/mL (200-900)
== END 2023-03-18 11:36 | disposition home or self-care (01) ==
LOC: HO.LAB 11:35
PROVIDERS: PCP Internal Medicine; Visit Provider Internal Medicine
DX: Z12.5 Encounter for screening for malignant neoplasm of prostate (principal); E78.00 Pure hypercholesterolemia, unspecified
CPT/HCPCS: 36415; 80053; 80061; 82607; 82746; 84153; 84439; 84443; 85025

== ENCOUNTER 2023-03-30 10:46 | Outpatient (REF) | payer OTHER, SELFPAY ==
--- NOTE | ~2023-03-30 | US_ITS ---
EXAMINATION: US PELVIS LIMITED (BLADDER) CLINICAL INFORMATION: Frequency of micturition. COMPARISON: Ultrasound retroperitoneal limited (renal only) 02/04/2018. TECHNIQUE: Real-time imaging of the bladder. FINDINGS: BLADDER: Well distended. Mild irregularity and trabeculations of the bladder wall. Bilateral ureteral jets are demonstrated. Prevoid bladder volume is 534 mL. Postvoid bladder volume is 103 mL. ADDITIONAL FINDINGS: Prostate volume 42 mL. US/US bladder IMPRESSION: Mild irregularity and trabeculations of the bladder wall. Postvoid bladder volume is 103 mL. Enlarged prostate.
== END 2023-03-30 10:47 | disposition home or self-care (01) ==
LOC: HO.HMGCX 10:46
PROVIDERS: PCP Internal Medicine; Visit Provider Internal Medicine
DX: R35.0 Frequency of micturition (principal)
CPT/HCPCS: 76857

== ENCOUNTER 2023-04-01 10:00 | Outpatient (AMB) | payer OTHER, SELFPAY ==
[2023-04-01 10:10] VITALS: BP 144/82; PULSE 68; O2SAT 97; BMI 31.0
--- NOTE | 2023-04-01 10:10 | A.OFFPC_ITS ---
Vital Signs 04/01/23 10:10 Height 5 ft 11 in Weight 222 lb 0.4 oz BMI 31.0 BP 144/82 H Blood Pressure Location Lt brachial Position Sitting Pulse 68 Pulse Source Pulse Oximeter Temp Source Skin Pulse Oximetry (%) 97 Oxygen Delivery Method Room Air Intake Visit Reasons: Annual Physical Allergies hair dye Allergy (Intermediate, Uncoded 04/01/23 10:16) facial swelling Medication List - Last Reconciled 04/01/23 by YADIRA Hdez amoxicillin 1,000 mg PO BID bisacodyl (Dulcolax (bisacodyl)) 10 mg (2 x 5 mg) PO ONCE 1 day lidocaine 5% 1 patch topical DAILY lisinopril 10 mg PO DAILY polyethylene glycol 3350 (Miralax) 238 grams PO ONCE 1 day Tobacco use date assessed: 04/01/23 Dental Screening Dental Screen Date: 04/01/23 Did you have a dental visit in the last 12 months?: Yes Did you have a dental problem in the last 6 months where you did not have access to dental care?: No Was dental information given to patient?: Patient has dentist HPI Annual Physical HPI Details Patient is a 63-year-old male who presents today for physical exam. Patient of Dr. Jimenez. Medical history significant for hypercholesterolemia, fatty liver, obesity, hypertension, frequency of micturition - patient reports that at night he has get up multiple times to urinate for the past some time now. He recently did have bladder ultrasound which showed mild irregularity and trabeculations of the bladder wall - patient declined referral to urology although interested in trying tamsulosin. Recent prostate blood work is normal. Patient has an upcoming colonoscopy 05/2023 with Marvin BURTON. He has an upcoming appointment for eye exam. Dental exam up-to-date. Patient denies shortness of breath or chest pain. Recent blood work results reviewed with the patient. 03/2023 US/US bladder IMPRESSION: Mild irregularity and trabeculations of the bladder wall. Postvoid bladder volume is 103 mL. Enlarged prostate. [facility] Medical History COVID-19 virus infection Obesity (BMI 30-39.9) Cholelithiasis Fatty liver Hypercholesterolemia Arthritis of right acromioclavicular joint Internal derangement of right shoulder Hypertension Surgical History History of surgery History of excision of mass History of arthroscopy of right knee History of appendectomy Family History Mother Asthma Chronic mental illness Alzheimers disease Father No problems noted. Sister Stomach cancer Other Mental health disorder Social History Housing: Apartment Alcohol intake: current Alcohol intake frequency: a few times a week Alcohol type: beer Patient Tobacco Use Status: Never used Tobacco e-Cigarette/Vaping Use: Never Used Second Hand Smoke Exposure: No service: No Current occupational status: employed Current occupation: [employer], right handed Cognitive needs: No Hearing needs: No Vision needs: Yes (glasses) Questionnaire PHQ-9 Over the last 2 weeks, how often have you been bothered by any of the following problems? 1. Little interest or pleasure in doing things: not at all 2. Feeling down, depressed, or hopeless: not at all 3. Trouble falling or staying asleep, or sleeping too much: not at all 4. Feeling tired or having little energy: not at all 5. Poor appetite or overeating: not at all 6. Feeling bad about yourself - or that you are a failure or have let yourself or your family down: not at all 7. Trouble concentrating on things, such as reading the newspaper or watching television: not at all 8. Moving or speaking so slowly that other people could have noticed. Or the opposite - being so fidgety or restless that you have been moving around a lot more than usual: not at all 9. Thoughts that you would be better off or of hurting yourself in some way: not at all Total score: 0 Depression Screening Interpretation: Negative Depression Screening Done: Yes 86759 - PHQ-9 Billing: Yes Source: Developed by Drs. Brando Lozoya, Maryjo Cabrera, Noble Powers and colleagues, with an educational maricruz from [employer]. Thrive Questionnaire Date Thrive assessed: 03/18/23 AUDIT C Alcohol Use Questionnaire (AUDIT-C) 1. How often do you have a drink containing alcohol?: Monthly or less 2. How many drinks containing alcohol do you have on a typical day when you are drinking?: 1 or 2 Total Score: 1 Score Reviewed/Action Taken: No GAURANG-7 AMB Questionnaire GAURANG-7 Date GAURANG - 7 assessed: 03/18/23 Source: Developed by Drs. Brando Lozoya, Maryjo Cabrera, Noble Powers and colleagues, with an educational maricruz from [employer]. Review of Systems Const Denies body aches, Denies chills, Denies fever(s) and Denies headache(s) Eyes Denies change in vision ENT Denies dizziness, Denies otalgia, Denies headache(s), Denies nasal discharge, Denies sinus pain and Denies sore throat Card Denies chest pain, Denies edema, Denies lightheadedness and Denies dyspnea Resp Denies cough, Denies dyspnea and Denies wheezing GI Denies abdominal pain, Denies constipation, Denies diarrhea, Denies nausea and Denies vomiting Denies dysuria and Reports urinary frequency Musc Denies myalgias Skin/Breast Denies rash Neuro Denies dizziness and Denies headache(s) Aller/Immun Denies wheezing Physical exam (Primary Care) Vital Signs: Last Vital Signs Pulse 68 04/01/23 10:10 BP 144/82 H 04/01/23 10:10 Pulse Ox 97 04/01/23 10:10 Oxygen Delivery Method Room Air 04/01/23 10:10 BMI result Body Mass Index 31.0 Tobacco/Smoking Status: Tobacco use Status Tobacco use date assessed 04/01/23 04/01/23 10:14 Patient Tobacco Use Status Never used Tobacco 04/01/23 10:14 Tobacco use type 03/18/23 10:34 e-Cigarette/Vaping Use Never Used 04/01/23 10:14 PHQ-9: PHQ-9 Score PHQ-9: Total score 0 04/01/23 10:19 Depression Screening Interpretation: Negative Thrive Assessment: Date of Thrive Assessment Date Thrive assessed 03/18/23 04/01/23 10:14 Const General: cooperative and no acute distress Orientation/consciousness: patient oriented x3 HENMT Head: Yes normocephalic and Yes atraumatic Ears: TM's normal bilaterally Face and sinus: Yes sinuses nontender Mouth: oropharynx normal and moist mucous membranes Throat: Yes posterior oropharynx normal Eyes General: appearance normal, both eyes and all related structures Pupils: Equal, round and reactive pupils present EOM: EOMs intact bilaterally Neck Neck: Yes normal visual inspection, Yes full ROM and Yes no lymphadenopathy Thyroid: Thyroid normal Resp Effort & Inspection: normal respiratory effort and able to speak in complete sentences Auscultation: clear to auscultation bilaterally, no crackles, no rales, no rhonchi and no wheezes Cardio Rate: regular rate Rhythm: regular rhythm Heart sounds: S1 normal heart sound present, S2 normal heart sound present and no murmurs GI Palpation (GI): Soft to palpation, not firm, nontender, no guarding, not rigid and no hepatosplenomegaly Auscultation: normal bowel sounds General: No CVA tenderness Back/Spine/Pelvis Back: No CVA tenderness Skin General skin exam: no rashes or lesions noted Neuro General: patient oriented x3 Cranial nerves: Yes Equal, round and reactive pupils present Gait exam (Neuro): Normal gait present Extrem General: Yes full ROM and No edema Assessment and Plan Assessment & Plan (1) Frequency of micturition: Code(s): R35.0 - Frequency of micturition Plan: Start tamsulosin 0.4 mg at bedtime - possible adverse reactions reviewed with the patient and when to notify provider Follow-up with PCP in 3 months (2) Annual physical exam: Code(s): Z00.00 - Encounter for general adult medical examination without abnormal findings Plan: Repeat in 1 year (3) Hypertension: Code(s): I10 - Essential (primary) hypertension Plan: Goal BP equal or less than 140/90 Continue lisinopril Low-sodium diet and weight loss (4) Obesity (BMI 30-39.9): Code(s): E66.9 - Obesity, unspecified Plan: Healthy food choices and exercise as tolerated (5) Fatty liver: Comment: Over chart review note elevated liver enzymes Will get abdominal ultrasound to assess for fatty liver Labs to rule out any underlying liver disease Code(s): K76.0 - Fatty (change of) liver, not elsewhere classified Plan: Low-cholesterol diet and weight loss (6) Hypercholesterolemia: Code(s): E78.00 - Pure hypercholesterolemia, unspecified Plan: Recent LDL 140 Reinforced low-cholesterol diet and weight loss Plan Follow-up with PCP in 3 months or sooner as needed Medications: New tamsulosin 0.4 mg PO BEDTIME 30 caps 2RF R35.0 - Frequency of micturition Coding Level of Care Code Est Pt Prev Care 40-64y(28815) Diagnoses Frequency of micturition R35.0 Annual physical exam Z00.00 Hypertension I10 Obesity (BMI 30-39.9) E66.9 Fatty liver K76.0 Hypercholesterolemia E78.00
== END 2023-04-01 11:33 | disposition home or self-care (01) ==
PROVIDERS: PCP Internal Medicine; Visit Provider Nurse Practitioner Family
DX: Z00.00 Encounter for general adult medical examination without abnormal findings (principal); R35.0 Frequency of micturition; Z68.31 Body mass index [BMI] 31.0-31.9, adult; E66.9 Obesity, unspecified; I10 Essential (primary) hypertension; K76.0 Fatty (change of) liver, not elsewhere classified; E78.00 Pure hypercholesterolemia, unspecified
CPT/HCPCS: 99396

== ENCOUNTER 2023-05-26 07:50 | Day surgery (SDC) | payer OTHER, SELFPAY ==
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
[2023-05-26 08:28] VITALS: BMI 31.7
[2023-05-26 08:33] VITALS: BP 137/82; PULSE 74; RESP 15; TEMP 36.6; O2SAT 97
--- NOTE | 2023-05-26 08:34 | P.HPSUR_ITS ---
Pre-Procedural Eval Section A Date of Service: 05/26/23 Section B Chief Complaint: Encounter for screening for malignant neoplasm of Relevant Family History (Specify if Yes): No Relevant Social History: None Present Medications: see Short Stay Collaborative assessment Medical History: Significant History (COVID-19 virus infection Obesity (BMI 30- 39.9) Cholelithiasis Fatty liver Hypercholesterolemia Arthritis of right acromioclavicular joint Internal derangement of right shoulder Hypertension) History of Previous Operations: Relevant previous surgery/procedure and date(s) (History of surgery History of excision of mass History of arthroscopy of right knee History of appendectomy) Allergies: Allergies Allergy/AdvReac Type Severity Reaction Status Date / Time hair dye Allergy Intermediate facial Uncoded 05/26/23 08:27 swelling Review of Systems Sugical H&P ROS: Negative: Constitution, Cardiovascular, Respiratory, Neurological, Psychiatric, Hem-Onc, Allergic/Immunologic, Gastrointestinal, Genitourinary, Musculoskeletal, Integumentary, Endocrine and Eyes/Ears/Nose/Throat Exam Surgical H&P Exam: Normal: HEENT, Normal: Heart, Normal: Lungs, Normal: Extremities, Normal: Abdomen, Normal: Skin and Normal: Neurological Plan Diagnosis/Plan: Unchanged I have reviewed the history and physical and performed a pertinent physical examination on my patient. No changes have occurred unless specified. Time Spent With Patient Time: Total time managing care of this patient today ____ minutes.
[2023-05-26] MEDS: Lactated Ringers 1,000 ML 100 ML IVCONT (08:49)
--- NOTE | 2023-05-26 09:49 | P.OP_ITS ---
Operative Note Operative Note Date of Service: 05/26/23 Narrative: Operative Information Procedure Description: Colonoscopy Indication: screening Anesthesia: MAC COLONOSCOPY Instrument: Olympus variable stiffness pediatric scope 190L Colonoscopy Monitoring: Vital signs and clinical assessment, continuous EKG monitoring, Pulse oximetry, Carbon Dioxide monitoring and blood pressure monitoring were done throughout the procedure. Colon withdrawal time was 17 minutes. Procedure: The patient was placed in the left lateral decubitis position and pre-procedure medications were administered. After a digital rectal examination of the ano-rectum, the video colonoscope was inserted into the rectum and advanced through the colon to the cecum/TI. The colonoscope was slowly withdrawn in a retrograde panoramic fashion and the colon mucosa was carefully examined including a retroflexed view of the rectum. Findings and interventions are described below. Procedure Difficulty: easy Findings: Terminal Ileum-normal Cecum:normal Ascending Colon: 4-6 mm sessile polyp removed with cold snare, mild melanosis coli Transverse Colon -normal Descending Colon:normal Sigmoid Colon: 5-7 mm sessile polyp removed with cold forceps, x 3 clips applied for hemostasis Rectum: Retroflexion with small internal hemorrhoids, grade I Anorectum - normal Colon preparation: Duncan Bowel Preparation Scale Right colon; 2 Transverse colon: 3 Left colon; 3 (0 = Unprepared colon segment with mucosa not seen due to solid stool that cannot be cleared. 1 = Portion of mucosa of the colon segment seen, but other areas of the colon segment not well seen due to staining, residual stool and/or opaque liquid. 2 = Minor amount of residual staining, small fragments of stool and/or opaque liquid, but mucosa of colon segment seen well. 3 = Entire mucosa of colon segment seen well with no residual staining, small fragments of stool or opaque liquid) Impression and Post Procedure Diagnosis: polyps internal hemorrhoids melanosis coli Plan: High fiber diet leaflet Avoid straining at stool, epsom salts and sitz bath, anusol supps or cream Repeat Colonoscopy in 5-7 years due to adenomatous appearing polyps or earlier if clinically indicated Above findings were reviewed with the patient and relevant handouts were provided if indicated.
[2023-05-26 09:54] VITALS: BP 125/76; PULSE 64; RESP 16; TEMP 36.5; O2SAT 97
[2023-05-26 10:09] VITALS: BP 134/86; PULSE 59; RESP 16; TEMP 36.7; O2SAT 97
[2023-05-26 10:23] VITALS: BP 128/87; PULSE 57; RESP 16; O2SAT 97
== END 2023-05-26 10:56 | disposition home or self-care (01) ==
PROVIDERS: PCP Internal Medicine; Visit Provider Internal Medicine Gastroenterology
PROC: 0DJD8ZZ Inspection of Lower Intestinal Tract, Via Natural or Artificial Opening Endoscopic (ICD-10-PCS; CPT 45378; principal; 2023-05-26 10:00)
DX: Z12.11 Encounter for screening for malignant neoplasm of colon (principal); D12.2 Benign neoplasm of ascending colon; D12.5 Benign neoplasm of sigmoid colon; K64.0 First degree hemorrhoids; K63.89 Other specified diseases of intestine; K76.0 Fatty (change of) liver, not elsewhere classified; R74.8 Abnormal levels of other serum enzymes; I10 Essential (primary) hypertension; E78.00 Pure hypercholesterolemia, unspecified; E66.9 Obesity, unspecified; Z68.30 Body mass index [BMI] 30.0-30.9, adult; Z79.899 Other long term (current) drug therapy
CPT/HCPCS: 45385; 45380; 88305; J2250; J2704

== ENCOUNTER → 2023-05-26 07:50 | Outpatient (BNV) | payer OTHER, SELFPAY | PROVIDERS: PCP Internal Medicine; Visit Provider Internal Medicine Gastroenterology | DX: Z12.11 Encounter for screening for malignant neoplasm of colon (principal); D12.2 Benign neoplasm of ascending colon; D12.5 Benign neoplasm of sigmoid colon; K64.0 First degree hemorrhoids | CPT/HCPCS: 45380; 45385 ==

== ENCOUNTER 2023-11-11 08:44 | Outpatient (REF) | payer OTHER, SELFPAY ==
[2023-11-11 09:08] LABS: MANUAL DIFF FLAG NO
[2023-11-11 09:42] LABS: Basophils Percent Auto 0.4 % (0-2); Eosinophils Absolute Auto 0.7 X10*3/uL (0.0-0.4); Hematocrit 47.9 % (42.0-52.0); Hemoglobin 16.2 g/dl (14.0-18.0); Imm Gran Abs Auto 0.13 X10*3/uL (0.00-0.03); Imm Gran Pct Auto 1.4 % (0.0-0.4); Lymphocytes Percent Auto 31.7 % (20-40); Mean Corpuscular HGB Conc 33.8 g/dl (31.0-36.0); Mean Corpuscular Hemoglobin 30.5 pg (27.0-33.0); Mean Corpuscular Volume 90.2 fL (80.0-98.0); Mean Platelet Volume 9.9 fL (9.4-12.4); Monocytes Absolute Auto 1.4 X10*3/uL (0.1-1.2); Monocytes Percent Auto 14.7 % (2-11); Neutrophils Absolute Auto 4.3 x10*3/uL (2.0-8.3); Neutrophils Percent Auto 44.8 % (45-73); Platelet Count 262 X10*3/uL (160-400); Red Blood Count 5.31 X10*6/uL (4.60-5.80); Red Cell Distribution Width 12.7 % (11.0-16.0); White Blood Count 9.5 X10*3/uL (4.8-10.8)
[2023-11-11 10:57] LABS: Alanine Aminotransferase 65 U/L (0-40); Albumin Level 4.4 g/dL (3.5-5.0); Alkaline Phosphatase 74 U/L (39-117); Anion Gap 12 (12-20); Aspartate Amino Transferase 63 U/L (5-37); Bilirubin Total 0.5 mg/dL (0.0-1.0); Blood Urea Nitrogen 12 mg/dL (9-16); Calcium 9.3 mg/dL (8.4-10.2); Carbon Dioxide 25 mmol/L (22-29); Chloride 106 mmol/L (96-108); Cholesterol 270 mg/dL (<200); Estimated Glomerular Filt Rate > 60; Glucose Random 104 mg/dL (60-115); HDL Cholesterol 121 mg/dL (>40); LDL Cholesterol Calculated 137 mg/dL (<100); Potassium 4.7 mmol/L (3.3-5.1); Sodium 138 mmol/L (135-145); Total Protein 7.3 g/dL (6.5-8.0); Triglycerides 61 mg/dL (<150)
[2023-11-11 11:02] LABS: Free T4 (Free Thyroxine) 0.71 ng/dL (0.71-1.85); Thyroid Stimulating Hormone 1.64 uIU/mL (0.32-4.0)
[2023-11-11 11:11] LABS: Folate 9.5 ng/mL (> or = 4.0); Prostate Specific Antigen Scr 0.98 ng/mL (<0.05-4.0); Vitamin B12 364 pg/mL (200-900)
== END 2023-11-11 08:45 | disposition home or self-care (01) ==
LOC: HO.LAB 08:44
PROVIDERS: PCP Internal Medicine; Visit Provider Internal Medicine
DX: E78.00 Pure hypercholesterolemia, unspecified (principal); Z12.5 Encounter for screening for malignant neoplasm of prostate
CPT/HCPCS: 36415; 80053; 80061; 82607; 82746; 84153; 84439; 84443; 85025

== ENCOUNTER 2023-11-11 14:13 | Outpatient (AMB) | payer OTHER, SELFPAY ==
[2023-11-11 14:24] VITALS: BP 128/82; PULSE 67; O2SAT 97; BMI 32.4
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
== END 2023-11-11 15:01 | disposition home or self-care (01) ==
PROVIDERS: PCP Internal Medicine; Visit Provider Internal Medicine
DX: N40.0 Benign prostatic hyperplasia without lower urinary tract symptoms (principal); M17.0 Bilateral primary osteoarthritis of knee; I10 Essential (primary) hypertension; K76.0 Fatty (change of) liver, not elsewhere classified; E78.00 Pure hypercholesterolemia, unspecified; L23.9 Allergic contact dermatitis, unspecified cause
CPT/HCPCS: 99214

== ENCOUNTER 2024-04-28 17:58 | Emergency (ER) | payer OTHER, BC, SELFPAY ==
[2024-04-28 18:01] VITALS: BP 152/90; PULSE 67; RESP 20; TEMP 36.2; O2SAT 97; BMI 30.7
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
[2024-04-28] MEDS: Fluorescein Sodium STRIP 1 STRIP EYE-LEFT (20:50)
[2024-04-28] MEDS: Tetracaine HCl/PF 0.5% Oph Sol 4 ML DROPS 1 DROP EYE-LEFT (20:50)
--- NOTE | 2024-04-28 20:51 | PC.NURSE ---
Assist Ok Haynes, with continuos eye irrigation, Will medicated per aug, Notified KAVIN Miner
[2024-04-28] MEDS: oxyCODONE HCl Immed Release 5 MG TABLET PO (21:00)
[2024-04-28 21:15] VITALS: BP 140/93; PULSE 62; RESP 20; TEMP 36.6; O2SAT 98
[2024-04-28] MEDS: Erythromycin Base 0.5% Oph Oin 1 GM TUBE 1 CM EYE-LEFT (22:18)
[2024-04-28 22:19] VITALS: BP 144/88; PULSE 65; RESP 20; TEMP 36.5; O2SAT 98
[2024-04-28] MEDS: Morphine Sulfate 10 MG/ML CARTRIDGE 6 MG IM (22:43)
[2024-04-28 22:56] VITALS: BP 144/88; PULSE 65; RESP 20; TEMP 36.5; O2SAT 98
== END 2024-04-28 22:57 | disposition home or self-care (01) ==
PROVIDERS: Emergency Provider Emergency Medicine; PCP Internal Medicine
DX: S05.02XA Injury of conjunctiva and corneal abrasion without foreign body, left eye, initial encounter (principal); H53.8 Other visual disturbances; Y93.89 Activity, other specified; Y92.89 Other specified places as the place of occurrence of the external cause; Y99.0 Civilian activity done for income or pay; Z77.098 Contact with and (suspected) exposure to other hazardous, chiefly nonmedicinal, chemicals
CPT/HCPCS: 96372; 99284; J2270

== ENCOUNTER → 2024-04-29 14:30 | Outpatient (BNVA) | payer OTHER, SELFPAY | PROVIDERS: PCP Internal Medicine; Visit Provider Registered Nurse | DX: S05.02XA Injury of conjunctiva and corneal abrasion without foreign body, left eye, initial encounter (principal); T54.3X1A Toxic effect of corrosive alkalis and alkali-like substances, accidental (unintentional), initial encounter; H57.12 Ocular pain, left eye | CPT/HCPCS: 99202 ==

== ENCOUNTER 2024-08-08 15:12 | Outpatient (AMB) | payer OTHER, SELFPAY ==
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
[2024-08-08 15:29] VITALS: BP 140/80; PULSE 66; TEMP 36.4; O2SAT 97
== END 2024-08-08 15:55 | disposition home or self-care (01) ==
PROVIDERS: PCP Internal Medicine
DX: M25.561 Pain in right knee (principal)

== ENCOUNTER → 2024-08-08 15:12 | Outpatient (BNVA) | payer OTHER, SELFPAY | PROVIDERS: PCP Internal Medicine | DX: M25.561 Pain in right knee (principal); M17.0 Bilateral primary osteoarthritis of knee | CPT/HCPCS: 96127; 99212 ==

== ENCOUNTER 2025-04-03 12:55 | Outpatient (AMB) | payer BC, SELFPAY ==
[2025-04-03 13:05] VITALS: BP 136/82; PULSE 67; TEMP 36.3; O2SAT 97; BMI 31.2
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
--- OUTSIDE RECORDS SUMMARY | 2025-04-03 15:41 | XMS_ITS | Patient Health Record ---
Author Organization [facility] Address [address] [place] [id number] Care Team Providers Care Technology Intern Name Role Phone Padmini Jimenez MD Primary Care Provider Len Gr Jr Unavailable Reason For Referral No Information Medications Medication SIG (Take, Route, Fr equency, Duration) Notes Start Date End Date Status MoviPrep 100 GM as directed Orally; Duration: 1 dose 06/30/2012 Active Problems Problem Type SNOMED Code ICD Code Onset Dates Problem Status W/U Status Risk Notes Problem Colon cancer screening (149697043) Colon cancer screening (V76.51) Active confirmed Plan Of Treatment Future Test Test Name Order Date COLONOSCOPY 06/25/2012 Insurance Providers Payer Name Payer Address Payer Phone Subscriber Number Group Number Insured Name Patient Relationship to Insured Coverage Start Date Coverage End Date [facility] [address] [place] Pham [phone] [id number] CHANTAL RYAN Self - patient is the insured Medical (General) History Medical History History ICD Code Denies [place],DM,CVA,Lung disease,renal dise ase Surgical History Surgery Date(Month/Year) Foot surgery 1996 knee surgery mouth surgery 1990 shoulder surgery 2008 appendectomy 1973
== END 2025-04-03 14:22 | disposition home or self-care (01) ==
LOC: HO.HMCH 12:55
PROVIDERS: PCP Internal Medicine; Visit Provider Internal Medicine
DX: I10 Essential (primary) hypertension (principal); E78.00 Pure hypercholesterolemia, unspecified; Z68.31 Body mass index [BMI] 31.0-31.9, adult; E66.9 Obesity, unspecified; K76.0 Fatty (change of) liver, not elsewhere classified; M17.0 Bilateral primary osteoarthritis of knee; L30.9 Dermatitis, unspecified; Z23 Encounter for immunization

== ENCOUNTER → 2025-04-03 12:55 | Outpatient (BNVA) | payer BC, OTHER, SELFPAY | PROVIDERS: PCP Internal Medicine; Visit Provider Internal Medicine | DX: I10 Essential (primary) hypertension (principal); E78.00 Pure hypercholesterolemia, unspecified; E66.9 Obesity, unspecified; T26.62XA Corrosion of cornea and conjunctival sac, left eye, initial encounter; T54.3X1A Toxic effect of corrosive alkalis and alkali-like substances, accidental (unintentional), initial encounter; K76.0 Fatty (change of) liver, not elsewhere classified; M17.0 Bilateral primary osteoarthritis of knee; L30.9 Dermatitis, unspecified; Z23 Encounter for immunization | CPT/HCPCS: 90471; 90472; 90656; 90714 ==

== ENCOUNTER 2025-04-04 08:43 | Outpatient (REF) | payer BC, SELFPAY ==
[2025-04-04 09:01] LABS: MANUAL DIFF FLAG NO
--- OUTSIDE RECORDS SUMMARY | 2025-04-04 09:04 | XMS_ITS | Patient Health Record ---
Author Organization [facility] Address [address] [place] [id number] Care Team Providers Care Wool Handler Name Role Phone Padmini Jimenez MD Primary Care Provider Len Gr Jr Unavailable [phone] Reason For Referral No Information Medications Medication SIG (Take, Route, Fr equency, Duration) Notes Start Date End Date Status MoviPrep 100 GM as directed Orally; Duration: 1 dose 06/30/2012 Active Problems Problem Type SNOMED Code ICD Code Onset Dates Problem Status W/U Status Risk Notes Problem Colon cancer screening (527649080) Colon cancer screening (V76.51) Active confirmed Plan Of Treatment Future Test Test Name Order Date COLONOSCOPY 06/25/2012 Insurance Providers Payer Name Payer Address Payer Phone Subscriber Number Group Number Insured Name Patient Relationship to Insured Coverage Start Date Coverage End Date [facility] [address] [place] Pham [phone] [id number] CHANTAL RYAN Self - patient is the insured Medical (General) History Medical History History ICD Code Denies [place],DM,CVA,Lung disease,renal dise ase Surgical History Surgery Date(Month/Year) Foot surgery 1996 knee surgery mouth surgery 1990 shoulder surgery 2008 appendectomy 1973
[2025-04-04 09:49] LABS: Hematocrit 49.6 % (42.0-52.0); Hemoglobin 16.8 g/dl (14.0-18.0); Imm Gran Abs Auto 0.06 X10*3/uL (0.00-0.03); Imm Gran Pct Auto 0.6 % (0.0-0.4); Lymphocytes Absolute Auto 3.6 X10*3/uL (1.2-4.9); Mean Corpuscular HGB Conc 33.9 g/dl (31.0-36.0); Mean Corpuscular Hemoglobin 30.7 pg (27.0-33.0); Mean Corpuscular Volume 90.5 fL (80.0-98.0); NRBC Abs Auto 0.000 X10*3/uL (0.0-0.012); NRBC Pct Auto 0.0 /100WBC (0.0-0.2); Platelet Count 241 X10*3/uL (160-400); Red Blood Count 5.48 X10*6/uL (4.60-5.80); White Blood Count 9.7 X10*3/uL (4.8-10.8)
[2025-04-04 11:38] LABS: Alanine Aminotransferase 75 U/L (0-40); Albumin Level 4.5 g/dL (3.5-5.0); Alkaline Phosphatase 58 U/L (39-117); Anion Gap 11 (12-20); Aspartate Amino Transferase 51 U/L (5-37); Blood Urea Nitrogen 14 mg/dL (9-16); Calcium 9.4 mg/dL (8.4-10.2); Carbon Dioxide 23 mmol/L (22-29); Chloride 105 mmol/L (96-108); Cholesterol 255 mg/dL (<200); Estimated Glomerular Filt Rate > 60; HDL Cholesterol 112 mg/dL (>40); Potassium 4.3 mmol/L (3.3-5.1); Sodium 135 mmol/L (135-145); Total Protein 7.3 g/dL (6.5-8.0); Triglycerides 66 mg/dL (<150)
[2025-04-04 11:56] LABS: Folate 8.7 ng/mL (> or = 4.0); Vitamin B12 420 pg/mL (200-900)
[2025-04-04 12:47] LABS: Free T4 (Free Thyroxine) 0.70 ng/dL (0.71-1.85); Thyroid Stimulating Hormone 1.20 uIU/mL (0.32-4.0)
== END 2025-04-04 08:44 | disposition home or self-care (01) ==
LOC: HO.LAB 08:43
PROVIDERS: PCP Internal Medicine; Visit Provider Internal Medicine
DX: E78.00 Pure hypercholesterolemia, unspecified (principal); Z12.5 Encounter for screening for malignant neoplasm of prostate; Z13.1 Encounter for screening for diabetes mellitus
CPT/HCPCS: 36415; 80053; 80061; 82607; 82746; 83036; 84153; 84439; 84443; 85025

== ENCOUNTER → 2025-05-03 11:56 | Outpatient (BNVA) | payer OTHER, SELFPAY | PROVIDERS: PCP Internal Medicine; Visit Provider Physician Assistant | DX: S93.431A Sprain of tibiofibular ligament of right ankle, initial encounter (principal); X50.1XXA Overexertion from prolonged static or awkward postures, initial encounter | CPT/HCPCS: 73610; 73630; 99203 ==

== ENCOUNTER → 2025-05-09 10:54 | Outpatient (BNVA) | payer OTHER, SELFPAY | PROVIDERS: PCP Internal Medicine; Visit Provider Emergency Medicine | DX: S93.431A Sprain of tibiofibular ligament of right ankle, initial encounter (principal); X50.1XXA Overexertion from prolonged static or awkward postures, initial encounter | CPT/HCPCS: 99213 ==

== ENCOUNTER → 2025-05-23 11:11 | Outpatient (BNVA) | payer OTHER, SELFPAY | PROVIDERS: PCP Internal Medicine; Visit Provider Emergency Medicine | DX: S93.431D Sprain of tibiofibular ligament of right ankle, subsequent encounter (principal); X50.1XXD Overexertion from prolonged static or awkward postures, subsequent encounter | CPT/HCPCS: 99213 ==

== ENCOUNTER → 2025-06-01 11:32 | Outpatient (BNVA) | payer OTHER, SELFPAY | PROVIDERS: PCP Internal Medicine; Visit Provider Emergency Medicine | DX: S93.431D Sprain of tibiofibular ligament of right ankle, subsequent encounter (principal); X50.1XXD Overexertion from prolonged static or awkward postures, subsequent encounter; Z02.79 Encounter for issue of other medical certificate | CPT/HCPCS: 99213 ==